=== PATIENT | male | born 1985 | race Caucasian/White ===

== ENCOUNTER 2021-01-11 20:47 | Outpatient (REF) | payer MEDICARE, SELFPAY ==
[2021-01-13 11:57] LABS: COVID-19 RT-PCR UVMMC Result Negative (Negative)
== END 2021-01-11 20:48 | disposition home or self-care (01) ==
LOC: NCHCN 20:47
PROVIDERS: PCP Family Medicine; Visit Provider Registered Nurse
DX: Z20.822 Contact with and (suspected) exposure to COVID-19 (principal); J06.9 Acute upper respiratory infection, unspecified
CPT/HCPCS: U0003; U0005

== ENCOUNTER 2021-02-06 10:26 | Outpatient (REF) | payer MEDICARE, SELFPAY ==
[2021-02-06 16:04] LABS: Absolute Basophil Count 0.02 10^3/uL (0.0-0.2); Absolute Eosinophil Count 0.08 10^3/uL (0.0-0.7); Absolute Lymphocyte Count 1.22 10^3/uL (1.2-3.4); Absolute Monocyte Count 0.27 10^3/uL (0.1-0.8); Absolute Neutrophil Count 1.58 10^3/uL (1.2-6.7); Basophils % 0.6; Eosinophils % 2.5; HCT 42.8 % (40.0-50.0); HGB 13.8 g/dL (13.5-17.5); Lymphocytes % 38.5; MCH 30.3 pg (27.0-33.0); MCHC 32.2 % (32.0-36.0); MCV 93.9 fL (80-95); MPV 12.3 fL (8.0-11.0); Monocytes % 8.5; Neutrophils % 49.9; Nucleated RBC 0 %; Platelet Count 156 10^3/uL (130-400); RBC 4.56 10^6/uL (4.36-5.78); RDW-SD 44.9 fL; WBC 3.17 10^3/uL (4.4-10.8)
[2021-02-06 17:14] LABS: VALPROIC ACID 48.9 ug/mL
[2021-02-06 23:38] LABS: Hemoglobin A1C 5.4 % (<5.7)
[2021-02-07 08:47] LABS: AST 16 U/L (15-37); Alkaline Phosphatase 56 U/L (46-116); Anion Gap 10.7 mmol/L (3-11); BUN 20 mg/dL (7-18); Bilirubin, Total 0.4 mg/dL (0.2-1.0); CO2 27.3 mmol/L (21.0-32.0); CREATININE 1.1 mg/dL (0.70-1.30); Calcium 9.3 mg/dL (8.5-10.1); Chloride 107 mmol/L (98-107); Glucose 94 mg/dL (74-106); Potassium 4.5 mmol/L (3.5-5.1); Sodium 145 mmol/L (136-145); Total Protein 6.9 g/dL (6.4-8.2)
[2021-02-07 08:48] LABS: ALT 20 U/L (16-63); TSH 3.21 uIU/mL (0.36-3.74)
== END 2021-02-06 10:27 | disposition home or self-care (01) ==
LOC: NCHCN 10:26
PROVIDERS: PCP Family Medicine; Visit Provider Nurse Practitioner Family
DX: Z13.1 Encounter for screening for diabetes mellitus (principal); Z13.29 Encounter for screening for other suspected endocrine disorder; Z79.899 Other long term (current) drug therapy; Z00.00 Encounter for general adult medical examination without abnormal findings
CPT/HCPCS: 80053; 80164; 83036; 84443; 85025

== ENCOUNTER 2021-03-01 19:04 | Outpatient (REF) | payer MEDICARE, SELFPAY ==
[2021-03-01 22:43] LABS: Bacteria Rare HPF (Negative); C & S Indicated? No; Casts Negative LPF (Negative); Crystals Mod Calcium Oxalate HPF (Negative); Epithelial Cells Negative HPF (Negative); Mucus Negative (Negative); RBC 0-2 HPF (0-2); WBC 0-2 HPF (0-5)
== END 2021-03-01 19:05 | disposition home or self-care (01) ==
LOC: NCHCN 19:04
PROVIDERS: PCP Family Medicine; Visit Provider Nurse Practitioner Family
DX: R39.9 Unspecified symptoms and signs involving the genitourinary system (principal)
CPT/HCPCS: 81015

== ENCOUNTER 2022-05-24 15:22 | Outpatient (REF) | payer MEDICARE, SELFPAY ==
[2022-05-24 17:40] LABS: VALPROIC ACID 49.4 ug/mL
== END 2022-05-24 15:23 | disposition home or self-care (01) ==
LOC: LBN 15:22
PROVIDERS: PCP Family Medicine; Visit Provider Psychiatry & Neurology Psychiatry
DX: Z79.899 Other long term (current) drug therapy (principal)
CPT/HCPCS: 80164

== ENCOUNTER 2022-12-18 11:50 | Outpatient (REF) | payer MEDICARE, SELFPAY ==
[2022-12-19 18:51] LABS: Valproic Acid 50 ug/mL (50-100)
== END 2022-12-18 11:51 | disposition home or self-care (01) ==
LOC: LBN 11:50
PROVIDERS: PCP Family Medicine; Visit Provider Psychiatry & Neurology Psychiatry
DX: Z79.899 Other long term (current) drug therapy (principal); Z51.81 Encounter for therapeutic drug level monitoring
CPT/HCPCS: 80164

== ENCOUNTER 2023-02-11 15:28 | Outpatient (REF) | payer MEDICARE, SELFPAY ==
[2023-02-11 16:32] LABS: Absolute Basophil Count 0.02 10^3/uL (0.0-0.2); Absolute Eosinophil Count 0.07 10^3/uL (0.0-0.7); Absolute Lymphocyte Count 1.38 10^3/uL (1.2-3.4); Absolute Monocyte Count 0.24 10^3/uL (0.1-0.8); Absolute Neutrophil Count 1.19 10^3/uL (1.2-6.7); Basophils % 0.7; Eosinophils % 2.4; HCT 41.5 % (40.0-50.0); HGB 14.2 g/dL (13.5-17.5); Lymphocytes % 47.6; MCH 31.1 pg (27.0-33.0); MCHC 34.2 % (32.0-36.0); MCV 91 fL (80-95); MPV 11.2 fL (8.0-11.0); Monocytes % 8.3; Platelet Count 235 10^3/uL (130-400); RBC 4.56 10^6/uL (4.36-5.78); RDW 12.3 % (11.8-14.1); RDW-SD 41.1 fL
[2023-02-11 17:21] LABS: Hemoglobin A1C 5.2 % (<5.7)
[2023-02-11 17:25] LABS: ALT 20 U/L (16-63); AST 19 U/L (15-37); Albumin 3.8 g/dL (3.4-5.0); Alkaline Phosphatase 78 U/L (46-116); Anion Gap 7.3 mmol/L (3-11); BUN 14 mg/dL (7-18); Bilirubin, Total 0.5 mg/dL (0.2-1.0); CO2 28.7 mmol/L (21.0-32.0); Calcium 9.8 mg/dL (8.5-10.1); Calculated LDL 107 mg/dL (<100); Chloride 103 mmol/L (98-107); Cholesterol 189 mg/dL (<200); Estimated GFR 98.18 (mL/min/1.73m2); Glucose 98 mg/dL (74-106); HDL Cholesterol 71 mg/dL (40-60); Potassium 4.4 mmol/L (3.5-5.1); Sodium 139 mmol/L (136-145); TSH 3.45 uIU/mL (0.36-3.74); Total Protein 7.3 g/dL (6.4-8.2); Triglyceride 55 mg/dL (<150)
== END 2023-02-11 15:29 | disposition home or self-care (01) ==
LOC: NCHCN 15:28
PROVIDERS: PCP Family Medicine; Visit Provider Nurse Practitioner Family
DX: Z13.6 Encounter for screening for cardiovascular disorders (principal); Z13.1 Encounter for screening for diabetes mellitus
CPT/HCPCS: 80053; 80061; 83036; 84443; 85025

== ENCOUNTER 2023-05-13 11:51 | Outpatient (REF) | payer MEDICARE, SELFPAY ==
[2023-05-13 14:24] LABS: Abs Immature Grans 0.01 10^3/uL (0.0-0.06); Absolute Basophil Count 0.04 10^3/uL (0.0-0.2); Absolute Monocyte Count 0.38 10^3/uL (0.1-0.8); Absolute Neutrophil Count 1.72 10^3/uL (1.2-6.7); Eosinophils % 2.4; HCT 45.7 % (40.0-50.0); HGB 15.1 g/dL (13.5-17.5); Immature Grans % 0.2; Lymphocytes % 45.8; MCH 30.1 pg (27.0-33.0); MCV 91 fL (80-95); MPV 10.9 fL (8.0-11.0); Monocytes % 9.2; Neutrophils % 41.4; Platelet Count 215 10^3/uL (130-400); RBC 5.01 10^6/uL (4.36-5.78); RDW 12.6 % (11.8-14.1); RDW-SD 41.7 fL; WBC 4.15 10^3/uL (4.4-10.8)
[2023-05-13 15:00] LABS: VALPROIC ACID 56.1 ug/mL
== END 2023-05-13 11:52 | disposition home or self-care (01) ==
LOC: NCHCN 11:51
PROVIDERS: PCP Family Medicine; Visit Provider Nurse Practitioner Family
DX: D72.819 Decreased white blood cell count, unspecified (principal); Z79.899 Other long term (current) drug therapy; Z51.81 Encounter for therapeutic drug level monitoring
CPT/HCPCS: 80164; 85025

== ENCOUNTER 2024-05-31 14:51 | Outpatient (REF) | payer MEDICARE, SELFPAY ==
[2024-05-31 22:32] LABS: Vitamin D 25 Total 110.1 ng/mL (30-100)
== END 2024-05-31 14:52 | disposition home or self-care (01) ==
LOC: NCHCN 14:51
PROVIDERS: PCP Family Medicine; Visit Provider Nurse Practitioner Family
DX: E55.9 Vitamin D deficiency, unspecified (principal)
CPT/HCPCS: 82306